=== PATIENT | male | born 1965 | race Caucasian/White ===

== ENCOUNTER 2022-02-13 10:36 | Inpatient (IN) ==
[2022-02-13 11:21] LABS: Basophils # 0.1 10*3/uL (0.0-0.2); Basophils % 0.8 % (0.0-0.8); Eosinophils # 0.2 10*3/uL (0.0-0.87); Eosinophils % 1.9 % (0.00-10.9); Hematocrit 46.8 VOL% (42.0-52.0); Immature Granulocytes % 0.5 %; Immature Granulocytes Absolute 0.04 #; Lymphocytes % 25.3 % (21.2-54.2); Mean Corpuscular HGB Conc 34.2 GM/DL (32-36); Mean Corpuscular Volume 93.4 FL (87-102); Mean Platelet Volume 8.9 FL (9.6-12.0); Monocytes % 7.9 % (1.7-12.7); Neutrophils % 63.6 % (38.7-73.9); Platelet Count 286 T/CUMM (130-400); Red Blood Count 5.01 MC/CUMM (3.8-5.5); White Blood Count 7.7 T/CUMM (4-12)
[2022-02-13 11:32] LABS: PT Patient Result 10.9 SECS (10.5-12.0); Partial Thromboplastin Time 25.9 SECS (23.8-32.1)
[2022-02-13 11:39] LABS: Bilirubin,Total 0.4 MG/DL (0.20-1.00); Calcium 8.8 MG/DL (8.5-10.1); Osmolality,Calculated 275.8 MOS/KG (273-304); Potassium 3.7 MMOL/L (3.5-5.1); Total Protein 7.4 G/DL (6.4-8.2)
[2022-02-13] MEDS ORDERED: LACTULOSE 20 GM/30 ML UDCUP PO PRN (12:11)
[2022-02-13] MEDS ORDERED: DEXTROSE 10% 250 ML BAG IV PRN (12:11)
[2022-02-13] MEDS ORDERED: ZALEPLON 5 MG CAPSULE PO PRN (12:11)
[2022-02-13] MEDS ORDERED: DOCUSATE SODIUM 100 MG CAPSULE PO PRN (12:11)
[2022-02-13] MEDS ORDERED: GLUCAGON 1 MG VIAL IM PRN (12:11)
[2022-02-13] MEDS ORDERED: ONDANSETRON 4 MG/2 ML VIAL IV PRN (12:11)
[2022-02-13] MEDS ORDERED: ASPIRIN EC 325 MG TABLET PO STA (12:16)
[2022-02-13] MEDS ORDERED: ENOXAPARIN 40 MG/0.4 ML SYRINGE SUBCUT SCH (12:30)
[2022-02-13] MEDS ORDERED: LORazepam 2 MG/1 ML VIAL IV PRN (13:46)
[2022-02-13 19:08] LABS: Mucus,Urine Occasional /LPF (Occasional); RBC,Urine 2 /HPF (0-4); Squamous Epithelial Cell,Urine Occasional /HPF (0-10); Urine Color Yellow (Yellow)
[2022-02-13 19:09] LABS: Bilirubin,Urine Negative (Negative); Blood, Urine Negative (Negative); Glucose,Urine (UA) Negative (Negative); Ketones,Urine Negative (Negative); Nitrite,Urine Negative (Negative); Protein,Urine Negative (Negative); Urine Appearance Clear (Clear); Urine Specific Gravity 1.025 (1.001-1.035); Urine Urobilinogen 0.2 eU/dL (<2.0); Urine pH 5.5 (4.5-8.0)
[2022-02-13 19:27] LABS: Barbiturates Screen,Urine Negative (Negative); Benzodiazepines Screen,Urine Negative (Negative); Cannabinoid Screen,Urine Positive (Negative); Opiate Screen,Urine Negative (Negative); Phencyclidine Screen,Urine Negative (Negative)
[2022-02-13] MEDS ORDERED: ATORVASTATIN 40 MG TABLET PO SCH (21:00)
[2022-02-14 05:21] LABS: Basophils # 0.1 10*3/uL (0.0-0.2); Eosinophils # 0.2 10*3/uL (0.0-0.87); Eosinophils % 2.9 % (0.00-10.9); Hematocrit 47.3 VOL% (42.0-52.0); Hemoglobin 16.2 GM/DL (14.0-18.0); Immature Granulocytes % 0.6 %; Immature Granulocytes Absolute 0.04 #; Lymphocytes # 1.8 10*3/uL (1.4-4.0); Lymphocytes % 26.3 % (21.2-54.2); Mean Corpuscular HGB Conc 34.2 GM/DL (32-36); Mean Corpuscular Volume 93.1 FL (87-102); Mean Platelet Volume 8.9 FL (9.6-12.0); Monocytes % 9.4 % (1.7-12.7); Neutrophils % 59.8 % (38.7-73.9); Platelet Count 264 T/CUMM (130-400); Red Blood Count 5.08 MC/CUMM (3.8-5.5); Red Cell Distribution Width 13.1 % (9.3-17.3); White Blood Count 6.8 T/CUMM (4-12)
[2022-02-14 05:49] LABS: Folate 12.72 NG/ML (5.38-24.0); Vitamin B12 419 PG/ML (211-911)
[2022-02-14 05:53] LABS: % Iron Saturation 22.1 % (18-50); Ferritin 303.9 ng/mL (26-388); Osmolality,Calculated 278.5 MOS/KG (273-304); Potassium 4.2 MMOL/L (3.5-5.1); Risk Ratio 3.49; Thyroid Stimulating Hormone 2.34 uIU/ml (0.358-3.74); VLDL Cholesterol 13.4 MG/DL
[2022-02-14 06:50] LABS: Sedimentation Rate-Westergren 12 MM/HR (0-20)
[2022-02-14] MEDS ORDERED: ASPIRIN EC 325 MG TABLET PO SCH (09:00)
[2022-02-14] MEDS ORDERED: PANTOPRAZOLE 40 MG TABLET PO SCH (09:00)
[2022-02-14] MEDS ORDERED: THIAMINE 100 MG TABLET PO SCH (09:00)
[2022-02-14] MEDS ORDERED: ERGOCALCIFEROL 50,000 UNIT CAPSULE PO SCH (09:30)
[2022-02-14] MEDS ORDERED: ENOXAPARIN 80 MG/0.8 ML SYRINGE SUBCUT SCH (11:00)
[2022-02-14] MEDS ORDERED: lisinopriL 5 MG TABLET PO SCH (13:00)
[2022-02-14 18:07] VITALS: BP 149/82
[2022-02-14] MEDS ORDERED: ATORVASTATIN 80 MG TABLET PO SCH (21:00)
[2022-02-15] MEDS ORDERED: MULTIVITAMIN (CENTRUM) TABLET PO SCH (09:00)
[2022-02-16 11:01] LABS: Hemoglobin A1 (Alkaline) 97.8 % (96.5-98.5); Hemoglobin A2 (Alkaline) 2.2 % (1.5-3.5)
== END 2022-02-14 17:23 | disposition hospice, home (50) | DRG 66 ==
LOC: N.ED 10:36 → N.EDINP 12:11 → SUATTDRO 12:11 → N.TELEN 16:19
PROVIDERS: ADMIT Hospitalist; ATTEND Internal Medicine